=== PATIENT | male | born 1995 | race Caucasian/White ===

== ENCOUNTER → 2017-02-14 22:43 | Emergency (ER) | payer OTHER ==
[2017-02-14 23:04] VITALS: BP 134/60
--- NOTE | 2017-02-15 07:51 | RAD ---
HISTORY: Right ankle pain, status post fall COMPARISONS: None VIEWS: 4, Frontal, lateral, and oblique views of the right ankle FINDINGS: BONE DENSITY: Normal. BONES: There is no displaced fracture. JOINTS: There is no arthropathy. ALIGNMENT: There is no dislocation. SOFT TISSUES: There is soft tissue swelling. OTHER FINDINGS: None. IMPRESSION: SOFT TISSUE SWELLING. NO ACUTE OSSEOUS INJURY. IF SYMPTOMS PERSIST, RECOMMEND REPEAT IMAGING.
--- NOTE | 2017-02-16 12:42 | ED ---
Jessica Lynn Alfonso, scribed for Alverto Thomas MD on 02/15/17 at 0045 . Lower Extremity - HPI Summary HPI Summary: This patient is a 21 year old M presenting to [facility] accompanied by female with a chief complaint of right ankle pain since 1800 today. He states I went up for a rebound in basketball and I fell on it. The patient rates the pain 5/10 in severity. Symptoms alleviated by nothing. Patient reports right ankle swelling. He states he can stand on the ankle. - History of Current Complaint Chief Complaint: EDExtremityLower Stated Complaint: RT FT INJURY Time Seen by Provider: 02/15/17 00:33 Hx Obtained From: Patient Mechanism Of Injury: Fall From Height Of: - I went up for a rebound in basketball and I fell on it Onset of Pain: Post Accident Onset/Duration: Still Present Severity Currently: Moderate Pain Intensity: 5 Pain Scale Used: 0-10 Numeric Timing: Constant Location: Is Discrete @ - right ankle Associated Signs And Symptoms: Positive: Swelling Alleviating Factor(s): Nothing Able to Bear Weight: Yes - Allergies/Home Medications Allergies/Adverse Reactions: Allergies Allergy/AdvReac Type Severity Reaction Status Date / Time No Known Allergies Allergy Verified 02/14/17 23:03 PMH/Surg Hx/FS Hx/Imm Hx Opthamlomology History: Denies: Hx Legally Blind EENT History: Denies: Hx Deafness Infectious Disease History: No Infectious Disease History: Denies: Traveled Outside the [place] in Last 30 Days - Family History Known Family History: Negative: Cardiac Disease, Diabetes - Social History Alcohol Use: Occasionally Hx Substance Use: No Substance Use Type: Reports: None Hx Tobacco Use: No Smoking Status (MU): Never Smoked Tobacco Review of Systems Negative: Fever Positive: Other - Right ankle pain and swelling. All Other Systems Reviewed And Are Negative: Yes Physical Exam - Summary Physical Exam Summary: VITAL SIGNS: Reviewed. GENERAL: Patient is a well-developed and nourished male who is lying comfortable in the stretcher. Patient is not in any acute respiratory distress. HEAD AND FACE: No signs of trauma. No ecchymosis, hematomas or skull depressions. No sinus tenderness. EYES: PERRLA, EOMI x 2, No injected conjunctiva, no nystagmus. EARS: Hearing grossly intact. Ear canals and tympanic membranes are within normal limits. MOUTH: Oropharynx within normal limits. NECK: Supple, trachea is midline, no adenopathy, no JVD, no carotid bruit, no c- spine tenderness, neck with full ROM. CHEST: Symmetric, no tenderness at palpation LUNGS: Clear to auscultation bilaterally. No wheezing or crackles. CVS: Regular rate and rhythm, S1 and S2 present, no murmurs or gallops appreciated. ABDOMEN: Soft, non-tender. No signs of distention. No rebound no guarding, and no masses palpated. Bowel sounds are normal. EXTREMITIES: No cyanosis or clubbing. Right ankle: Right lateral malleolus swelling and point tenderness. Dorsal aspect swelling. His is able to apply pressure on the foot. NEURO: Alert and oriented x 3. No acute neurological deficits. Speech is normal and follows commands. SKIN: Dry and warm Triage Information Reviewed: Yes Vital Signs On Initial Exam: Initial Vitals Temp Pulse Resp BP Pulse Ox 98.7 F 75 18 134/60 97 02/14/17 23:01 02/14/17 23:01 02/14/17 23:01 02/14/17 23:01 02/14/17 23:01 Vital Signs Reviewed: Yes Diagnostics - Vital Signs Vital Signs Temp Pulse Resp BP Pulse Ox 02/14/17 23:01 98.7 F 75 18 134/60 97 - Laboratory Lab Statement: Any lab studies that have been ordered have been reviewed, and results considered in the medical decision making process. - Radiology Ankle X-Ray Radiology Interpretation Completed By: ED Physician - Negative for acute fracture and dislocation Lower Extremity Course/Dx - Course Assessment/Plan: This patient is a 21 year old M presenting to [facility] accompanied by female with a chief complaint of right ankle pain since 1800 today. He states I went up for a rebound in basketball and I fell on it. The patient rates the pain 5/10 in severity. Symptoms alleviated by nothing. Patient reports right ankle swelling. He states he can stand on the ankle. Ankle X-Ray negative for acute fracture and dislocation. However, I do believe the patient may have a tendon injury. I offered the patient a posterior splint; however he requested aircast and crutches. The patient will be discharged to home with PCP follow up in the next few days. Patient was instructed to ice and elevate the right ankle. The patient understands and agrees. The patient is hemodynamically stable and alert and oriented x3. - Diagnoses Provider Diagnoses: Right ankle sprain Discharge - Discharge Plan Condition: Stable Disposition: HOME Patient Education Materials: Ankle Sprain (ED) Referrals: [facility]ERR[facility] [Outside] - 3 Days Additional Instructions: RETURN TO THE EMERGENCY DEPARTMENT FOR CHANGING OR WORSENING SYMPTOMS. ICE AND ELEVATE THE ANKLE. The documentation as recorded by the Jessica steel Alfonso accurately reflects the service I personally performed and the decisions made by William crystal Walter, MD.
== END | disposition home or self-care (01) ==
LOC: ED 22:43
DX: M25.571 Pain in right ankle and joints of right foot (principal)
CPT/HCPCS: 99282